=== PATIENT | male | born 1980 | race Caucasian/White ===

== ENCOUNTER 2021-09-08 12:24 | Inpatient (IN) | payer BC ==
[2021-09-08 13:46] VITALS: BMI 31.0
[2021-09-08 14:58] LABS: #Basophils 0.1 10x3/uL (0.0-0.2); #Monocytes 0.3 10x3/uL (0.0-1.1); #Neutrophils 4.4 10x3/uL (1.5-8.4); %Basophils 0.8 % (0.0-2.0); %Eosinophils 0.5 % (0.0-6.0); %Lymphocytes 23.1 % (18.0-47.0); %Monocytes 4.4 % (0.0-10.0); %Neutrophils 70.9 % (40.0-75.0); Hemoglobin 12.6 g/dL (13.5-17.5); Mean Corpuscular HGB CONC 37.1 g/dL (32.0-36.0); Mean Corpuscular Hemoglobin 36.2 pg (27.0-33.0); Mean Corpuscular Volume 97.7 fl (81.2-95.1); Mean Platelet Volume 12.8 fl (7.4-10.4); Platelet Count 134 10x3/uL (150-450); RBC Distribution Width 14.1 % (11.5-14.5); Red Blood Cell (RBC) Count 3.48 10x6/uL (4.32-5.72); White Blood Cell (WBC) Count 6.2 10x3/uL (3.5-10.5)
[2021-09-08] MEDS ORDERED: Bisacodyl 5 MG TAB PO PRN (14:59)
[2021-09-08] MEDS ORDERED: Lorazepam 2 MG/ML VIAL SLOW IVP PRN (15:02)
[2021-09-08] MEDS: Heparin 5,000 UNITS/ML VIAL SC SCH ×2 (15:22→21:32)
[2021-09-08] MEDS: Sodium Chloride 0.9% 1,000 ML IV SCH ×3 (15:22→22:16)
[2021-09-08] MEDS: Morphine 4 MG/ML VIAL SLOW IVP PRN ×2 (15:30→19:38)
[2021-09-08] MEDS: Ondansetron PF 4 MG/2 ML Vial IVP PRN ×2 (15:31→21:31)
[2021-09-08 15:50] LABS: Phosphorus 2.8 mg/dL (2.3-4.7)
[2021-09-08 15:55] LABS: ALT (SGPT) 278 U/L (8-55); AST (SGOT) 472 U/L (5-34); Albumin 3.3 g/dL (3.5-5.0); Alkaline Phosphatase 300 U/L (40-110); Anion Gap 25 mmol/L (10-20); BUN (Urea Nitrogen) 44 mg/dL (8.9-20.6); Bilirubin, Total 1.5 mg/dL (0.2-1.2); Calc. Creatinine Clearance 34 mL/min (70-130); Calcium 7.7 mg/dL (7.8-10.44); Carbon Dioxide 18 mmol/L (22-29); Cardiac Risk 38.5 (Less than 4.5); Chloride 93 mmol/L (98-107); Cholesterol 462 mg/dl (< 200 Desired); Globulin 6.5 g/dL (2.4-3.5); Glucose 121 mg/dL (70-105); HDL Cholesterol 12 mg/dL (>60 Neg Risk); Magnesium 1.3 mg/dL (1.6-2.6); Potassium 5.4 mmol/L (3.5-5.1); Protein, Total 9.8 g/dL (6.0-8.3); Sodium 131 mmol/L (136-145)
[2021-09-08 16:09] LABS: Triglycerides Greater than 3800 mg/dL (Less than 150)
[2021-09-08] MEDS: Multivitamins, Adult 10 ML, Folic Acid 1 MG in Dextrose 5 %-0.45 % NaCl 1,000 ML IV SCH (16:33)
[2021-09-08] MEDS: Thiamine HCl 200 MG/2 ML VIAL SLOW IVP SCH (16:37)
[2021-09-08 18:20] LABS: Bilirubin Neg (Negative); Blood, Urine 50 (Negative); Clarity Clear (Clear); Glucose, Urine (Dipstick) Normal (Negative); Ketone, Urine Negative (Negative); Leukocyte Negative (Negative); Nitrite Negative (Negative); Protein, Urine (Dipstick) 15 mg/dl (Neg-Trace); Urobilinogen Normal mg/dL (Less than 2)
[2021-09-08 18:30] LABS: Bacteria/HPF None Seen HPF (None Seen); Squamous Epithelial 0-3 HPF (0-3); WBC/HPF 0-3 HPF (0-3)
[2021-09-08] MEDS ORDERED: Metoprolol Tartrate 25 MG TAB PO SCH (20:00)
[2021-09-08] MEDS: Sodium Bicarbonate Tab 325 MG TAB PO SCH (21:31)
[2021-09-09] MEDS: Morphine 4 MG/ML VIAL SLOW IVP PRN ×5 (00:13→19:54)
[2021-09-09] MEDS: Sodium Chloride 0.9% 1,000 ML IV SCH ×3 (03:15→13:35)
[2021-09-09 05:24] LABS: #Eosinphils 0.1 10x3/uL (0.0-0.5); #Monocytes 0.3 10x3/uL (0.0-1.1); #Neutrophils 3.9 10x3/uL (1.5-8.4); %Basophils 0.6 % (0.0-2.0); %Eosinophils 1.3 % (0.0-6.0); %Lymphocytes 21.4 % (18.0-47.0); %Monocytes 4.8 % (0.0-10.0); %Neutrophils 71.5 % (40.0-75.0); Hemoglobin 11.5 g/dL (13.5-17.5); Mean Corpuscular HGB CONC 35.3 g/dL (32.0-36.0); Mean Corpuscular Volume 96.4 fl (81.2-95.1); Mean Platelet Volume 12.9 fl (7.4-10.4); Platelet Count 96 10x3/uL (150-450); Red Blood Cell (RBC) Count 3.38 10x6/uL (4.32-5.72); White Blood Cell (WBC) Count 5.4 10x3/uL (3.5-10.5)
[2021-09-09 05:32] LABS: ALT (SGPT) 214 U/L (8-55); AST (SGOT) 309 U/L (5-34); Albumin 2.9 g/dL (3.5-5.0); Alkaline Phosphatase 250 U/L (40-110); Anion Gap 20 mmol/L (10-20); BUN (Urea Nitrogen) 28 mg/dL (8.9-20.6); Bilirubin, Total 1.7 mg/dL (0.2-1.2); Calc. Creatinine Clearance 45 mL/min (70-130); Carbon Dioxide 20 mmol/L (22-29); Chloride 99 mmol/L (98-107); Globulin 3.4 g/dL (2.4-3.5); Glucose 126 mg/dL (70-105); Potassium 2.7 mmol/L (3.5-5.1); Protein, Total 6.3 g/dL (6.0-8.3); Sodium 136 mmol/L (136-145)
[2021-09-09 06:50] LABS: Anisocytosis SLIGHT = 6-15 cells (100X) (0-5/hpf); Platelet Morphology Comment Appears Decreased; Stomatocytes SLIGHT = 2-5 cells (100X) (0-1/hpf)
[2021-09-09 06:58] LABS: Potassium 2.9 mmol/L (3.5-5.1)
[2021-09-09] MEDS: Metoprolol Tartrate 25 MG TAB PO SCH ×2 (08:22→22:03)
[2021-09-09] MEDS: Sodium Bicarbonate Tab 325 MG TAB PO SCH ×2 (08:22→22:03)
[2021-09-09] MEDS: Heparin 5,000 UNITS/ML VIAL SC SCH ×3 (08:24→22:04)
[2021-09-09] MEDS ORDERED: Potassium Bicarbonate/Cit Ac 20 MEQ TAB PO SCH (09:00)
[2021-09-09] MEDS ORDERED: Magnesium 2 GM/50 ML 2 GM in Premix Bag 1 BAG IVPB SCH ×2 (09:00→15:45)
[2021-09-09] MEDS: Ondansetron PF 4 MG/2 ML Vial IVP PRN (09:11)
[2021-09-09] MEDS: Potassium Chloride 20 MEQ TAB PO SCH ×5 (11:43→19:54)
[2021-09-09 14:52] LABS: Potassium 2.9 mmol/L (3.5-5.1)
[2021-09-09] MEDS ORDERED: Potassium Chloride 10 MEQ in Premix Bag 1 BAG IVPB SCH (15:45)
[2021-09-09] MEDS: Thiamine HCl 200 MG/2 ML VIAL SLOW IVP SCH (16:13)
[2021-09-09] MEDS: Lactated Ringer's 1,000 ML IV SCH (18:26)
[2021-09-09] MEDS: Multivitamins, Adult 10 ML, Folic Acid 1 MG in Dextrose 5 %-0.45 % NaCl 1,000 ML IV SCH (18:26)
[2021-09-09 20:43] LABS: Potassium 3.1 mmol/L (3.5-5.1)
[2021-09-09] MEDS: Potassium Chloride 20 MEQ in Premix Bag 1 BAG IVPB SCH (21:52)
[2021-09-10] MEDS: Potassium Chloride 20 MEQ in Premix Bag 1 BAG IVPB SCH (00:05)
[2021-09-10] MEDS: Morphine 4 MG/ML VIAL SLOW IVP PRN ×5 (00:11→18:11)
[2021-09-10] MEDS: Ondansetron PF 4 MG/2 ML Vial IVP PRN (00:21)
[2021-09-10 00:22] LABS: Anion Gap 12 mmol/L (10-20); BUN (Urea Nitrogen) 12 mg/dL (8.9-20.6); Calc. Creatinine Clearance 68 mL/min (70-130); Calcium 6.7 mg/dL (7.8-10.44); Carbon Dioxide 26 mmol/L (22-29); Chloride 100 mmol/L (98-107); Glucose 106 mg/dL (70-105); Potassium 3.8 mmol/L (3.5-5.1); Sodium 134 mmol/L (136-145)
[2021-09-10 00:44] LABS: Magnesium 1.5 mg/dL (1.6-2.6); Phosphorus 1.5 mg/dL (2.3-4.7)
[2021-09-10] MEDS ORDERED: Calcium Gluconate 4.6 MEQ in Sodium Chloride 0.9% 100 ML IVPB SCH (00:45)
[2021-09-10] MEDS ORDERED: Potassium Chloride 20 MEQ TAB PO SCH ×2 (02:00→05:00)
[2021-09-10] MEDS: Lactated Ringer's 1,000 ML IV SCH ×4 (02:28→21:38)
[2021-09-10] MEDS ORDERED: Magnesium 2 GM/50 ML 2 GM in Premix Bag 1 BAG IVPB SCH (04:15)
[2021-09-10] MEDS: Sodium Phosphate 30 MMOL in Sodium Chloride 0.9% 250 ML 250 ML IVPB ONE ×2 (04:43→06:02)
[2021-09-10 04:57] LABS: ALT (SGPT) 161 U/L (8-55); AST (SGOT) 213 U/L (5-34); Albumin 2.8 g/dL (3.5-5.0); Alkaline Phosphatase 224 U/L (40-110); Anion Gap 12 mmol/L (10-20); BUN (Urea Nitrogen) 10 mg/dL (8.9-20.6); Calc. Creatinine Clearance 71 mL/min (70-130); Carbon Dioxide 25 mmol/L (22-29); Chloride 103 mmol/L (98-107); Globulin 3.1 g/dL (2.4-3.5); Glucose 100 mg/dL (70-105); Potassium 3.9 mmol/L (3.5-5.1); Protein, Total 5.9 g/dL (6.0-8.3); Sodium 136 mmol/L (136-145)
[2021-09-10] MEDS: Sodium Chloride 0.9% 1,000 ML IV SCH (07:26)
[2021-09-10] MEDS: Heparin 5,000 UNITS/ML VIAL SC SCH ×3 (08:33→21:36)
[2021-09-10] MEDS: Sodium Bicarbonate Tab 325 MG TAB PO SCH ×2 (08:33→21:36)
[2021-09-10] MEDS: Metoprolol Tartrate 25 MG TAB PO SCH ×2 (08:33→21:36)
[2021-09-10] MEDS ORDERED: oxyCODONE 5 MG TAB PO PRN (15:50)
[2021-09-11] MEDS: Lactated Ringer's 1,000 ML IV SCH ×2 (04:19→09:58)
[2021-09-11 04:31] LABS: Hemoglobin 9.8 g/dL (13.5-17.5); Mean Corpuscular HGB CONC 34.8 g/dL (32.0-36.0); Mean Corpuscular Hemoglobin 33.3 pg (27.0-33.0); Mean Corpuscular Volume 95.9 fl (81.2-95.1); Platelet Count 58 10x3/uL (150-450); RBC Distribution Width 14.8 % (11.5-14.5); Red Blood Cell (RBC) Count 2.94 10x6/uL (4.32-5.72); White Blood Cell (WBC) Count 6.7 10x3/uL (3.5-10.5)
[2021-09-11 04:32] LABS: ALT (SGPT) 117 U/L (8-55); AST (SGOT) 120 U/L (5-34); Albumin 2.7 g/dL (3.5-5.0); Alkaline Phosphatase 227 U/L (40-110); Bilirubin, Direct 3.5 mg/dL (0.1-0.3); Bilirubin, Total 4.6 mg/dL (0.2-1.2); Protein, Total 5.7 g/dL (6.0-8.3)
[2021-09-11 04:35] LABS: Anion Gap 12 mmol/L (10-20); BUN (Urea Nitrogen) 6 mg/dL (8.9-20.6); Calc. Creatinine Clearance 97 mL/min (70-130); Carbon Dioxide 26 mmol/L (22-29); Chloride 101 mmol/L (98-107); Glucose 90 mg/dL (70-105); Potassium 3.1 mmol/L (3.5-5.1); Sodium 136 mmol/L (136-145)
[2021-09-11 05:40] LABS: INR-International Normal Ratio 1.1; Prothrombin Time 11.6 sec (9.5-12.1)
[2021-09-11 06:22] LABS: #Eosinphils 0.1 10x3/uL (0.0-0.5); #Monocytes 0.5 10x3/uL (0.0-1.1); #Neutrophils 4.9 10x3/uL (1.5-8.4); %Basophils 0.4 % (0.0-2.0); %Eosinophils 1.9 % (0.0-6.0); %Lymphocytes 17.4 % (18.0-47.0); %Monocytes 7.3 % (0.0-10.0); %Neutrophils 72.7 % (40.0-75.0); Platelet Morphology Comment Appears Decreased
[2021-09-11 06:23] LABS: Anisocytosis SLIGHT = 6-15 cells (100X) (0-5/hpf); Stomatocytes SLIGHT = 2-5 cells (100X) (0-1/hpf)
[2021-09-11] MEDS: Sodium Bicarbonate Tab 325 MG TAB PO SCH (08:20)
[2021-09-11 12:35] VITALS: BP 131/77; TEMP 97.3
[2021-09-11] MEDS ORDERED: Potassium Chloride 20 MEQ TAB PO SCH (15:00)
[2021-09-11] MEDS ORDERED: Rosuvastatin 20 MG TAB PO SCH (21:00)
== END 2021-09-11 15:39 | disposition home or self-care (01) | DRG 682 ==
LOC: CSHTELE 13:19 → OBSVTOIN 14:59
PROVIDERS: ADMIT Internal Medicine; ATTEND Family Medicine
DX: N17.9 Acute kidney failure, unspecified (principal); K85.20 Alcohol induced acute pancreatitis without necrosis or infection; E87.2 Acidosis; I10 Essential (primary) hypertension; E78.5 Hyperlipidemia, unspecified; K70.10 Alcoholic hepatitis without ascites; K21.9 Gastro-esophageal reflux disease without esophagitis; E78.1 Pure hyperglyceridemia; E86.9 Volume depletion, unspecified; F10.10 Alcohol abuse, uncomplicated; D69.59 Other secondary thrombocytopenia; D64.89 Other specified anemias; E87.6 Hypokalemia
CPT/HCPCS: 36415; 74150; 76705; 76770; 80048; 80053; 80061; 80076; 81001; 82150; 82330; 83690; 83735; 84100; 84478; 85025; 85610; J0610; J1644; J2270; J2405; J3411; J3475; J3480; J3490; J7042; J7050; J7120